=== PATIENT | male | born 1945 | race Caucasian/White ===

== ENCOUNTER 2017-01-04 17:03 | Emergency (ER) | payer OTHER, MEDICARE ==
--- NOTE | 2017-01-04 17:43 | EDM.PDOC ---
ED HPI GENERAL MEDICAL PROBLEM - General Chief Complaint: Laceration Stated Complaint: cut head Time Seen by Provider: 01/04/17 17:43 - Related Data Allergies Allergy/AdvReac Type Severity Reaction Status Date / Time No Known Allergies Allergy Verified 01/04/17 18:13 Home Meds: Home Meds . [Unable to Verify Home Med List] 01/04/17 [History] Past Medical History - Past Health History Medical/Surgical History: Denies Medical/Surgical History Social & Family History - Family History Family Medical History: Noncontributory - Recreational Drug Use Recreational Drug Use: No - Living Situation & Occupation Living situation: Reports: Occupation: Retired ED ROS GENERAL - Review of Systems Review Of Systems: ROS reveals no pertinent complaints other than HPI. ED EXAM, HEAD INJURY - Physical Exam Exam: See Below Exam Limited By: No Limitations General Appearance: Alert, WD/WN, No Apparent Distress Head: Normocephalic, Scalp Lacerations (1.6cm, to depth of subcutaneous tissue) Nexus Criteria: No: Posterior, Midline Cervical Tenderness, Evidence of Intoxication, Altered Level of Consciousness, Focal Neurological Deficit, Painful Distraction Injuries Eyes: Bilateral Eye: Normal Inspection Ears: Normal External Exam, Normal Canal, Hearing Grossly Normal, Normal TMs Nose: Normal Inspection, Normal Mucousa, No Blood Throat/Mouth: Normal Inspection, Normal Lips, Normal Oropharynx, Normal Voice, No Airway Compromise Neck: Normal Inspection Respiratory: No Respiratory Distress, Lungs Clear Cardiovascular: Regular Rate, Rhythm Back Exam: Normal Inspection Extremities: No Evidence of Injury 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 nml As Tested, No Motor/Sensory Deficits, Alert, Normal Mood/Affect, Oriented x 3 ED LACERATION/WOUND & JOSEFINA PROC - Laceration/Wound Repair [place] Lac/wound length in cm: 1.6 Appearance: subcutaneous, linear Distal NVT: neuro & vascular intact Anesthetic type: other (none) Skin prep: chlorhexidine (hibiciens), saline Saline irrigation (cc's): 500 Closed with: kierra # of sutures: 4 Suture type: interrupted Drain placement: No Sterile dressing applied: none Tetanus status addressed: Yes Complications: No Course - Vital Signs Last Recorded V/S: Last Vital Signs Temp 35.9 C 01/04/17 17:30 Pulse 94 01/04/17 17:30 Resp 18 01/04/17 17:30 BP 118/60 01/04/17 17:30 Pulse Ox 94 L 01/04/17 17:30 Departure - Departure Time of Disposition: 17:53 Disposition: Home, Self-Care 01 Clinical Impression: Scalp laceration Qualifiers: Encounter type: initial encounter Qualified Code(s): S01.01XA - Laceration without foreign body of scalp, initial encounter - Discharge Information Instructions: Stitches, Kierra, or Adhesive Wound Closure, [id number] Referrals: PCP,None [Primary Care Provider] - Forms: ED Department Discharge Additional Instructions: May shampoo after 24 hours, gently blot dry. Follow up in clinic with your doctor in 7 to 10 days for suture removal. ED HPI HEAD INJURY - General Chief Complaint: Laceration Stated Complaint: FELL BACK AND CUT HEAD Time Seen by Provider: 01/04/17 17:43 Source of Information: Reports: Patient, RN, RN Notes Reviewed History Limitations: Reports: No Limitations - Related Data Allergies/ADRs: Allergies Allergy/AdvReac Type Severity Reaction Status Date / Time No Known Allergies Allergy Verified 01/04/17 18:13 Home Meds: Home Meds . [Unable to Verify Home Med List] 01/04/17 [History] Departure - Departure Time of Disposition: 17:53 Disposition: Home, Self-Care 01 Condition: good Clinical Impression: Scalp laceration Qualifiers: Encounter type: initial encounter Qualified Code(s): S01.01XA - Laceration without foreign body of scalp, initial encounter Instructions: Stitches, [place], or Adhesive Wound Closure, [id number] Referrals: PCP,None [Primary Care Provider] - Forms: ED Department Discharge Additional Instructions: May shampoo after 24 hours, gently blot dry. Follow up in clinic with your doctor in 7 to 10 days for suture removal.
[2017-01-04 18:13] VITALS: BP 118/60
== END 2017-01-04 18:01 | disposition home or self-care (01) ==
LOC: DL.ED 17:03
DX: S01.01XA Laceration without foreign body of scalp, initial encounter (principal); W26.9XXA Contact with unspecified sharp object(s), initial encounter
CPT/HCPCS: 12001; 99282

== ENCOUNTER 2019-08-12 10:39 | Emergency (ER) | payer MEDICARE, OTHER ==
[2019-08-12 10:51] VITALS: BP 141/69; PULSE 56
[2019-08-12 11:14] LABS: ANION GAP 13.6; CHLORIDE,CL 102 mmol/L (101-111); SODIUM,NA 139 mmol/L (135-145)
--- NOTE | 2019-08-12 11:55 | EDM.PDOC ---
ED HPI GENERAL MEDICAL PROBLEM - General Stated Complaint: HEART PALPITATIONS Time Seen by Provider: 08/12/19 11:08 Source of Information: Reports: Patient History Limitations: Reports: No Limitations - History of Present Illness INITIAL COMMENTS - FREE TEXT/NARRATIVE: This 73 yo male patient was sent to the ED from the [facility] due to heart palpitations yesterday. The patient reports he was not feeling well yesterday afternoon. As he was resting last night (1900), the patient reports feeling heart palpitations. The patient reports the palpations subsided shortly after he noticed them. The patient has not had any return of symptoms and was following up with his primary care facility today. The patient reports several of his family members have been diagnosed with WPW over the past few years. The patient reports he has not had any similar episodes for the past 6 months. The patient reports he is feeling normal at this time and denies any shortness of breath or chest pain. Onset Date: 08/11/19 Onset Time: 19:00 Duration: Resolved Prior to Arrival Location: Reports: Other Quality: Reports: Other Severity: Moderate Improves with: Reports: None Worsens with: Reports: None Context: Reports: Other Associated Symptoms: Reports: No Other Symptoms - Related Data Allergies Allergy/AdvReac Type Severity Reaction Status Date / Time lisinopril AdvReac Cough Verified 08/12/19 10:49 Home Meds: Home Meds Aspirin [Halfprin] 81 mg PO .QOD 06/10/18 [History] Atenolol 50 mg PO .EVENING 06/10/18 [History] Cholecalciferol (Vitamin D3) [Vitamin D3] 1,000 units PO DAILY 06/10/18 [History ] Fluorometholone 1 drop EYEBOTH BID 06/10/18 [History] Folic Acid 400 mcg PO DAILY 06/10/18 [History] Ketorolac [Acular 0.5% Ophth Soln] 1 drop EYELF ASDIRECTED 06/10/18 [History] Losartan [Cozaar] 50 mg PO DAILY 06/10/18 [History] Methylcellulose [Fiber] 1 tab PO DAILY 06/10/18 [History] Moxifloxacin HCl [Moxifloxacin] 1 drop EYERT ASDIRECTED 06/10/18 [History] Simvastatin 20 mg PO BEDTIME 06/10/18 [History] Triamterene/Hydrochlorothiazid [Triamterene-HCTZ 37.5-25 MG] 37.5 mg PO DAILY [History] Vit A and D3 in Cod Liver Oil [Cod Liver Oil Softgel] 1 cap PO DAILY 06/10/18 [ History] Vit A/C/E AC/Znox/Cupric Oxide [Eye Vitamin-Minerals Tablet] 1 tab PO BID [History] amLODIPine Besylate [Amlodipine Besylate] 5 mg PO DAILY 06/10/18 [History] glipiZIDE [Glucotrol] 5 mg PO BID 06/10/18 [History] metFORMIN HCl [Metformin HCl] 1,000 mg PO BID 06/10/18 [History] prednisoLONE acetate [Pred Forte 1% Ophth Susp] 1 drop EYELF ASDIRECTED [History] Past Medical History - Past Health History Medical/Surgical History: Denies Medical/Surgical History HEENT History: Reports: Cataract, Impaired Vision, Macular Degeneration Cardiovascular History: Reports: Arrhythmia, High Cholesterol, Hypertension Respiratory History: Reports: None Gastrointestinal History: Reports: Hemorrhoids Genitourinary History: Reports: Other (See Below) Other Genitourinary History: HYPOGONADISM Musculoskeletal History: Reports: Arthritis Neurological History: Reports: None Psychiatric History: Reports: None Endocrine/Metabolic History: Reports: Diabetes, Type II, Obesity/BMI 30+ Hematologic History: Reports: None Immunologic History: Reports: None Oncologic (Cancer) History: Reports: None Dermatologic History: Reports: None - Infectious Disease History Infectious Disease History: Reports: Chicken Pox, Shingles - Past Surgical History Head Surgeries/Procedures: Reports: None HEENT Surgical History: Reports: Cataract Surgery, Oral Surgery Other HEENT Surgeries/Procedures: TOOTH IMPLANT. CATARACT SURGERY LEFT EYE Cardiovascular Surgical History: Reports: None Respiratory Surgical History: Reports: None GI Surgical History: Reports: Appendectomy, Colonoscopy, Other (See Below) Other GI Surgeries/Procedures: HEMMORHOID PROCEDURE Male Surgical History: Reports: None Endocrine Surgical History: Reports: None Neurological Surgical History: Reports: None Musculoskeletal Surgical History: Reports: None Oncologic Surgical History: Reports: None Dermatological Surgical History: Reports: None Social & Family History - Family History Family Medical History: Noncontributory - Tobacco Use Smoking Status *Q: Former Smoker Used Tobacco, but Quit: Yes Month/Year Tobacco Last Used: 1983 - Caffeine Use Caffeine Use: Reports: Coffee Other Caffeine Use: COFFEE DAILY AVERAGE OF 4-5 CUPS DAILY - Recreational Drug Use Recreational Drug Use: No - Living Situation & Occupation Living situation: Reports: Occupation: Retired ED ROS GENERAL - Review of Systems Review Of Systems: Comprehensive ROS is negative, except as noted in HPI. ED EXAM, GENERAL - Physical Exam Exam: See Below Exam Limited By: No Limitations General Appearance: Alert, WD/WN, No Apparent Distress Eye Exam: Bilateral Eye: EOMI, Normal Inspection, PERRL Ears: Normal External Exam, Normal Canal, Hearing Grossly Normal, Normal TMs Nose: Normal Inspection, Normal Mucosa, No Blood Throat/Mouth: Normal Inspection, Normal Lips, Normal Teeth, Normal Gums, Normal Oropharynx, Normal Voice, No Airway Compromise Head: Atraumatic, Normocephalic Neck: Normal Inspection, Supple, Non-Tender, Full Range of Motion Respiratory/Chest: No Respiratory Distress, Lungs Clear, Normal Breath Sounds, No Accessory Muscle Use, Chest Non-Tender Cardiovascular: Normal Peripheral Pulses, Regular Rate, Rhythm, No Edema, No Gallop, No JVD, No Murmur, No Rub GI/Abdominal: Normal Bowel Sounds, Soft, Non-Tender, No Organomegaly, No Distention, No Abnormal Bruit, No Mass (Male) Exam: Deferred Rectal (Males) Exam: Deferred Back Exam: Normal Inspection, Full Range of Motion, NT Extremities: Normal Inspection, Normal Range of Motion, Non-Tender, Normal Capillary Refill, No Pedal Edema Neurological: Alert, Oriented, CN II-XII Intact, Normal Cognition, Normal Gait, Normal Reflexes, No Motor/Sensory Deficits Psychiatric: Normal Affect, Normal Mood Skin Exam: Warm, Dry, Intact, Normal Color, No Rash Lymphatic: No Adenopathy Course - Vital Signs Last Recorded V/S: Last Vital Signs Temp 36.4 C 08/12/19 10:49 Pulse 56 L 08/12/19 10:49 Resp 12 08/12/19 10:49 BP 141/69 H 08/12/19 10:49 Pulse Ox 97 08/12/19 10:49 - Orders/Labs/Meds Orders: Active Orders 24 hr Category Date Time Status EKG Documentation Completion [RC] URGENT Care 08/12/19 10:48 Ordered Chest 1V Frontal [CR] Urgent Exams 08/12/19 10:48 Ordered Labs: Laboratory Tests 08/12/19 08/12/19 08/12/19 Range/Units 10:48 10:48 10:48 WBC 8.3 (5.0-10.0) 10^3/uL RBC 4.81 (4.6-6.2) 10^6/uL Hgb 14.1 (14.0-18.0) g/dL Hct 41.2 (40.0-54.0) % MCV 85.7 (80-100) fL MCH 29.3 (27.0-34.0) pg MCHC 34.2 (33.0-35.0) g/dL Plt Count 202 (150-450) 10^3/uL Neut % (Auto) 66.8 (42.2-75.2) % Lymph % (Auto) 22.9 (20.5-50.1) % Hall % (Auto) 7.7 (2-8) % Eos % (Auto) 2.1 (1.0-3.0) % Baso % (Auto) 0.5 (0.0-1.0) % PT 10.3 (9.0-12.0) SEC INR 1.0 (0.9-1.2) Sodium 139 (135-145) mmol/L Potassium 3.6 (3.6-5.0) mmol/L Chloride 102 (101-111) mmol/L Carbon Dioxide 27.0 (21.0-31.0) mmol/L Anion Gap 13.6 BUN 32 H (7-18) mg/dL Creatinine 1.3 (0.6-1.3) mg/dL Est Cr Clr Drug Dosing 53.90 mL/min Estimated GFR (MDRD) 54 BUN/Creatinine Ratio 24.61 Glucose 181 H (74-105) mg/dL Calcium 9.6 (8.4-10.2) mg/dl Total Bilirubin 1.2 H (0.2-1.0) mg/dL AST 24 (10-42) IU/L ALT 29 (10-60) IU/L Alkaline Phosphatase 95 (42-121) IU/L Troponin I < 0.02 (0.00-0.02) ng/ml Total Protein 7.3 (6.7-8.2) g/dl Albumin 4.7 (3.2-5.5) g/dl Globulin 2.6 Albumin/Globulin Ratio 1.81 Departure - Departure Time of Disposition: 11:53 Disposition: Home, Self-Care 01 Condition: Fair Clinical Impression: Intermittent palpitations Instructions: Palpitations, [id number] Care Plan Goals: The patient and Dr. Colindres were advised of the examination, lab, EKG and x- ray results during the visit. Dr. Colindres has agreed to follow-up with the patient for continued evaluation and further management. If the patient has any additional symptoms or concerns, the patient should either return to the emergency department or visit his primary care facility. Sepsis Event Note - Evaluation Sepsis Screening Result: No Definite Risk - Focused Exam Vital Signs: Vital Signs Temp Pulse Resp BP Pulse Ox 08/12/19 10:49 36.4 C 56 L 12 141/69 H 97 Date Exam was Performed: 08/12/19 Time Exam was Performed: 11:48 - My Orders Last 24 Hours: My Active Orders 08/12/19 10:48 EKG Documentation Completion [RC] URGENT Chest 1V Frontal [CR] Urgent - Assessment/Plan Last 24 Hours: My Active Orders 08/12/19 10:48 EKG Documentation Completion [RC] URGENT Chest 1V Frontal [CR] Urgent
--- NOTE | 2019-08-12 12:57 | CR ---
EXAMINATION: Chest 1V Frontal SEX: Male AGE: 73 years CLINICAL HISTORY: 73-year-old male emergency department with PALPITATIONS. INTERPRETATION: 1. Normal cardiac silhouette. External child monitor leads. 2. No pulmonary vascular congestion, cephalization of flow, alveolar edema or dependent pleural effusion. 3. No lung mass or hilar lymphadenopathy. 4. No focal lobar pneumonia, atelectasis or collapse. 5. No pneumothorax or pneumomediastinum. Midline tracheal airway unremarkable. CONCLUSION: No acute cardiopulmonary abnormality.
== END 2019-08-12 12:10 | disposition home or self-care (01) ==
LOC: DL.ED 10:39
DX: R00.2 Palpitations (principal); I10 Essential (primary) hypertension; E11.9 Type 2 diabetes mellitus without complications; E78.00 Pure hypercholesterolemia, unspecified; M19.90 Unspecified osteoarthritis, unspecified site; E66.9 Obesity, unspecified; Z68.38 Body mass index [BMI] 38.0-38.9, adult; Z87.891 Personal history of nicotine dependence; Z88.8 Allergy status to other drugs, medicaments and biological substances; Z79.82 Long term (current) use of aspirin; Z79.899 Other long term (current) drug therapy; Z79.84 Long term (current) use of oral hypoglycemic drugs
CPT/HCPCS: 36415; 71045; 80053; 84484; 85025; 85610; 93005; 99285-25

== ENCOUNTER 2019-08-14 08:34 | Emergency (ER) | payer MEDICARE, OTHER ==
--- NOTE | 2019-08-14 08:37 | EDM.PDOC ---
ED HPI GENERAL MEDICAL PROBLEM - General Stated Complaint: HEART RATE UP Time Seen by Provider: 08/14/19 08:45 Source of Information: Reports: Patient History Limitations: Reports: No Limitations - History of Present Illness INITIAL COMMENTS - FREE TEXT/NARRATIVE: This 73 yo male patient reports to the ED with heart palpitations. The patient reports he woke up at about 0100 this morning due to right arm pain. The patient reports he can still feel that his heart is beating fast, but denies any current pain or shortness of breath. The patient was seen in the ED 2 days ago for a similar episode. During that visit, the patient's symptoms had subsided and he had not had any palpitations since the day prior to the visit. Today, the patient waited at home until he could get a hold of his primary care provider (Dr. Colindres). The patient report she took an Atenolol at about 0800 while at home under the direction of Dr. Colindres. The patient denies any chest pain, arm pain or shortness of breath while in the ED. Onset: Today Onset Date: 08/14/19 Onset Time: 01:00 Duration: Constant Location: Reports: Chest (Palpitations) Quality: Reports: Other Severity: Mild Improves with: Reports: None Worsens with: Reports: None Context: Reports: Other Associated Symptoms: Reports: Other (Heart palpitations) Treatments PICK REMOVER: Reports: Other Medication(s) (Atenolol (100 mg) at 0800) - Related Data Allergies Allergy/AdvReac Type Severity Reaction Status Date / Time lisinopril AdvReac Cough Verified 08/14/19 09:05 Home Meds: Home Meds Aspirin [Halfprin] 81 mg PO .QOD 06/10/18 [History] Atenolol 50 mg PO .EVENING 06/10/18 [History] Cholecalciferol (Vitamin D3) [Vitamin D3] 1,000 units PO DAILY 06/10/18 [History ] Fluorometholone 1 drop EYEBOTH BID 06/10/18 [History] Folic Acid 400 mcg PO DAILY 06/10/18 [History] Ketorolac [Acular 0.5% Ophth Soln] 1 drop EYELF ASDIRECTED 06/10/18 [History] Losartan [Cozaar] 50 mg PO DAILY 06/10/18 [History] Methylcellulose [Fiber] 1 tab PO DAILY 06/10/18 [History] Moxifloxacin HCl [Moxifloxacin] 1 drop EYERT ASDIRECTED 06/10/18 [History] Simvastatin 20 mg PO BEDTIME 06/10/18 [History] Triamterene/Hydrochlorothiazid [Triamterene-HCTZ 37.5-25 MG] 37.5 mg PO DAILY [History] Vit A and D3 in Cod Liver Oil [Cod Liver Oil Softgel] 1 cap PO DAILY 06/10/18 [ History] Vit A/C/E AC/Znox/Cupric Oxide [Eye Vitamin-Minerals Tablet] 1 tab PO BID [History] amLODIPine Besylate [Amlodipine Besylate] 5 mg PO DAILY 06/10/18 [History] glipiZIDE [Glucotrol] 5 mg PO BID 06/10/18 [History] metFORMIN HCl [Metformin HCl] 1,000 mg PO BID 06/10/18 [History] prednisoLONE acetate [Pred Forte 1% Ophth Susp] 1 drop EYELF ASDIRECTED [History] Past Medical History - Past Health History Medical/Surgical History: Denies Medical/Surgical History HEENT History: Reports: Cataract, Impaired Vision, Macular Degeneration Cardiovascular History: Reports: Arrhythmia, High Cholesterol, Hypertension Respiratory History: Reports: None Gastrointestinal History: Reports: Hemorrhoids Genitourinary History: Reports: Other (See Below) Other Genitourinary History: HYPOGONADISM Musculoskeletal History: Reports: Arthritis Neurological History: Reports: None Psychiatric History: Reports: None Endocrine/Metabolic History: Reports: Diabetes, Type II, Obesity/BMI 30+ Hematologic History: Reports: None Immunologic History: Reports: None Oncologic (Cancer) History: Reports: None Dermatologic History: Reports: None - Infectious Disease History Infectious Disease History: Reports: Chicken Pox, Shingles - Past Surgical History Head Surgeries/Procedures: Reports: None HEENT Surgical History: Reports: Cataract Surgery, Oral Surgery Other HEENT Surgeries/Procedures: TOOTH IMPLANT. CATARACT SURGERY LEFT EYE Cardiovascular Surgical History: Reports: None Respiratory Surgical History: Reports: None GI Surgical History: Reports: Appendectomy, Colonoscopy, Other (See Below) Other GI Surgeries/Procedures: HEMMORHOID PROCEDURE Male Surgical History: Reports: None Endocrine Surgical History: Reports: None Neurological Surgical History: Reports: None Musculoskeletal Surgical History: Reports: None Oncologic Surgical History: Reports: None Dermatological Surgical History: Reports: None Social & Family History - Family History Family Medical History: Noncontributory - Caffeine Use Caffeine Use: Reports: Coffee Other Caffeine Use: COFFEE DAILY AVERAGE OF 4-5 CUPS DAILY - Living Situation & Occupation Living situation: Reports: Occupation: Retired ED ROS GENERAL - Review of Systems Review Of Systems: Comprehensive ROS is negative, except as noted in HPI. ED EXAM, GENERAL - Physical Exam Exam: See Below Exam Limited By: No Limitations General Appearance: Alert, WD/WN, No Apparent Distress Eye Exam: Bilateral Eye: EOMI, Normal Inspection, PERRL Ears: Normal External Exam, Normal Canal, Hearing Grossly Normal, Normal TMs Nose: Normal Inspection, Normal Mucosa, No Blood Throat/Mouth: Normal Inspection, Normal Lips, Normal Teeth, Normal Gums, Normal Oropharynx, Normal Voice, No Airway Compromise Head: Atraumatic, Normocephalic Neck: Normal Inspection, Supple, Non-Tender, Full Range of Motion Respiratory/Chest: No Respiratory Distress, Lungs Clear, Normal Breath Sounds, No Accessory Muscle Use, Chest Non-Tender Cardiovascular: No Edema, Tachycardia GI/Abdominal: Normal Bowel Sounds, Soft, Non-Tender, No Organomegaly, No Distention, No Abnormal Bruit, No Mass Rectal (Males) Exam: Deferred Back Exam: Normal Inspection, Full Range of Motion, NT Extremities: Normal Inspection, Normal Range of Motion, Non-Tender, Normal Capillary Refill, No Pedal Edema Neurological: Alert, Oriented, CN II-XII Intact, Normal Cognition, Normal Gait, Normal Reflexes, No Motor/Sensory Deficits Psychiatric: Normal Affect, Normal Mood Skin Exam: Warm, Dry, Intact, Normal Color, No Rash Lymphatic: No Adenopathy Course - Vital Signs Last Recorded V/S: Last Vital Signs Temp 36.4 C 08/14/19 08:45 Pulse 130 H 08/14/19 08:45 Resp 22 H 08/14/19 08:45 BP 122/72 08/14/19 08:45 Pulse Ox 97 08/14/19 08:45 - Orders/Labs/Meds Orders: Active Orders 24 hr Category Date Time Status EKG Documentation Completion [RC] ROUTINE Care 08/14/19 12:30 Ordered EKG Documentation Completion [RC] URGENT Care 08/14/19 08:36 Active Heart Healthy Diet [DIET] Diet 08/14/19 Lunch Ordered Labs: Laboratory Tests 08/14/19 08/14/19 08/14/19 Range/Units 08:43 08:43 12:40 WBC 9.2 (5.0-10.0) 10^3/uL RBC 4.90 (4.6-6.2) 10^6/uL Hgb 14.4 (14.0-18.0) g/dL Hct 41.2 (40.0-54.0) % MCV 84.1 (80-100) fL MCH 29.4 (27.0-34.0) pg MCHC 35.0 (33.0-35.0) g/dL Plt Count 196 (150-450) 10^3/uL Neut % (Auto) 68.7 (42.2-75.2) % Lymph % (Auto) 20.3 L (20.5-50.1) % Stewart % (Auto) 8.0 (2-8) % Eos % (Auto) 2.5 (1.0-3.0) % Baso % (Auto) 0.5 (0.0-1.0) % Sodium 138 (135-145) mmol/L Potassium 3.3 L (3.6-5.0) mmol/L Chloride 103 (101-111) mmol/L Carbon Dioxide 25.0 (21.0-31.0) mmol/L Anion Gap 13.3 BUN 26 H (7-18) mg/dL Creatinine 1.1 (0.6-1.3) mg/dL Est Cr Clr Drug Dosing 63.70 mL/min Estimated GFR (MDRD) > 60 BUN/Creatinine Ratio 23.63 Glucose 172 H (74-105) mg/dL Calcium 9.3 (8.4-10.2) mg/dl Total Bilirubin 0.7 (0.2-1.0) mg/dL AST 22 (10-42) IU/L ALT 29 (10-60) IU/L Alkaline Phosphatase 99 (42-121) IU/L Troponin I < 0.02 < 0.02 (0.00-0.02) ng/ml Total Protein 7.0 (6.7-8.2) g/dl Albumin 4.5 (3.2-5.5) g/dl Globulin 2.5 Albumin/Globulin Ratio 1.80 Meds: Medications Discontinued Medications Generic Name Dose Route Start Last Admin Trade Name Artemio PRN Reason Stop Dose Admin Aspirin 324 mg 08/14/19 08:56 08/14/19 09:00 Aspirin PO 08/14/19 08:57 324 mg ONETIME ONE Administration - Re-Assessments/Exams Free Text/Narrative Re-Assessment/Exam: 08/14/19 09:08 The patient initially came to the ED in a Sinus Tachycardia with a report of taking Atenolol (100 mg) 30 minutes prior to arrival. Within 30 minutes of presentation, the patient started to have irregularities in his cardiac rhythm. At 0911, the patient converted into a sinus bradycardia with no further irregularities. 08/14/19 09:29 The patient was advised of the examination, lab, x-ray and EKG results. Since the patient converted, the patient will be placed as an extended ED patient for a repeat EKG and Troponin at 1230. Departure - Departure Time of Disposition: 13:45 Disposition: Home, Self-Care 01 Reason for Transfer *Q: Other Condition: Fair Clinical Impression: Intermittent palpitations Instructions: Palpitations, [id number] Forms: ED Department Discharge Care Plan Goals: The patient was advised of the examination, lab, EKG, x-ray, repeat EKG and repeat lab results during the visit. The patient was encouraged to follow-up with his primary care facility for continued evaluation and further management. The patient was encouraged to return to the emergency department if his symptoms start or get worse. Sepsis Event Note - Focused Exam Vital Signs: Vital Signs Temp Pulse Resp BP Pulse Ox 08/14/19 08:45 36.4 C 130 H 22 H 122/72 97 Date Exam was Performed: 08/14/19 Time Exam was Performed: 13:45 - My Orders Last 24 Hours: My Active Orders 08/14/19 08:36 EKG Documentation Completion [RC] URGENT 08/14/19 12:30 EKG Documentation Completion [RC] ROUTINE 08/14/19 Lunch Heart Healthy Diet [DIET] - Assessment/Plan Last 24 Hours: My Active Orders 08/14/19 08:36 EKG Documentation Completion [RC] URGENT 08/14/19 12:30 EKG Documentation Completion [RC] ROUTINE 08/14/19 Lunch Heart Healthy Diet [DIET]
[2019-08-14] MEDS ORDERED: Aspirin 81 MG Tab.Chew PO ONE (08:56)
[2019-08-14 08:58] VITALS: BP 122/72; PULSE 130
--- NOTE | 2019-08-14 09:04 | CR ---
EXAMINATION: Chest 1V Frontal SEX: Male AGE: 73 years CLINICAL HISTORY: 73-year-old male with tachycardia (recent evaluation for "palpitations"). INTERPRETATION: (External electronic device monitor leads) 1. Normal cardiac silhouette. No increase in size or change in configuration since 12 August 2019 or previous 13 May 2013 films. Left-sided aortic arch. 2. No pulmonary vascular congestion, cephalization of flow, alveolar edema or dependent new pleural fluid accumulation. 3. No lung mass or hilar lymphadenopathy. 4. No new focal lobar infiltrate, atelectasis or collapse. 5. No pneumothorax, pneumomediastinum or free subdiaphragmatic air. CONCLUSION: No acute new cardiopulmonary abnormality.
[2019-08-14 09:16] LABS: ANION GAP 13.3; CHLORIDE,CL 103 mmol/L (101-111); SODIUM,NA 138 mmol/L (135-145)
== END 2019-08-14 14:59 | disposition home or self-care (01) ==
LOC: DL.ED 08:34
DX: R00.2 Palpitations (principal); I10 Essential (primary) hypertension; E11.9 Type 2 diabetes mellitus without complications; E78.00 Pure hypercholesterolemia, unspecified; E66.9 Obesity, unspecified; Z68.33 Body mass index [BMI] 33.0-33.9, adult; Z79.82 Long term (current) use of aspirin; Z79.84 Long term (current) use of oral hypoglycemic drugs; Z79.899 Other long term (current) drug therapy
CPT/HCPCS: 36415; 71045; 80053; 84484; 85025; 93005; 99285; A9270

== ENCOUNTER 2019-11-17 06:25 | Day surgery (SDC) | payer OTHER, MEDICARE ==
[~2019-11-17 06:25] MED LIST: Midazolam 1 MG/ML 2 ML SDV ONE; Sodium Chloride 0.9% 10 ML Syringe FLUSH PRN; fentaNYL 100 MCG/2 ML SDV ONE
[2019-11-17] MEDS ORDERED: Midazolam 1 MG/ML 2 ML SDV IV ONE (06:26)
[2019-11-17] MEDS ORDERED: fentaNYL 100 MCG/2 ML SDV IV ONE (06:26)
[2019-11-17] MEDS: Dextrose 5%-0.45% NaCl 1,000 ML IV SCH (06:55)
[2019-11-17] MEDS: fentaNYL 100 MCG/2 ML SDV IV ONE ×2 (07:13→07:14)
[2019-11-17] MEDS: Midazolam 1 MG/ML 2 ML SDV IV ONE ×4 (07:15→07:26)
--- NOTE | 2019-11-17 08:31 | OR ---
DATE: 11/17/2019 PROCEDURE: Total colonoscopy and multiple cold snare polypectomies. INSTRUMENT USED: PCF-H190DL Olympus video colonoscope. PREMEDICATIONS: Fentanyl 100 mcg intravenous, Versed 3 mg intravenous, nasal O2 cannula. The procedure was done under pulse oximetry, BP recording, and glaucoma specialist. INDICATION: The patient with intermittent diarrhea, unexplained and not responsive to medical measures. Colonoscopic examination is done for detection of any polypoid lesions and removal, endoscopic hemostasis therapy if needed. DESCRIPTION OF PROCEDURE: Initial rectal exam was unremarkable. Rigid anoscopy showed small internal hemorrhoids without bleeding from them. The colonoscope was passed with ease. Scattered diverticula were noted in the distal left colon along with deformity. In the proximal sigmoid colon, diminutive 3 mm sized benign-appearing polyps, 2 in number noted. Photographs were taken. Cold snare polypectomies were done. The tissues were retrieved and sent for histopathology. The scope was passed with ease up to the ileocecal area. Photographs were taken of the normal-appearing cecum identified by landmarks of appendiceal orifice and double-bulged ileocecal folds. No bleeding was noted from any of the visualized areas at the commencement of the examination. The bowel preparation was found to be adequate, [place] scale 2 in all the regions, total score 6. No stricture. No vascular ectasia. No large isolated ulcerations seen. No evidence of diffuse inflammatory bowel disease in the form of friability, contact bleeding, or ulcerations. Probing the proximal sides of folds and flexures using adequate distention and clearing up the stool material, withdrawal of the scope was made, cecum to rectum time over 6 minutes. No bleeding was noted from any of the visualized areas at the completion of examination. IMPRESSION: 1. Internal hemorrhoids. 2. Diminutive sigmoid polyps. 3. Diverticulosis. The patient tolerated the procedure well. [facility] /[id number]
--- NOTE | 2019-11-17 10:00 | LETTER ---
11/17/2019 [place] Manuel, [address] [place] [address] RE: LUCIO DUNAWAY : 1945 Dear Ms. Manuel: Mr. Lucio Dunaway had colonoscopic examination done this morning and he tolerated the procedure well. I herewith send a copy of the endoscopy note and photographs for your review. Thank you. Sincerely, [facility] /[id number]
[2019-11-17 10:37] VITALS: BP 127/64; PULSE 67
== END 2019-11-17 09:34 | disposition home or self-care (01) ==
LOC: DL.ENDO 06:25
PROVIDERS: ATTEND Internal Medicine Gastroenterology
DX: D12.5 Benign neoplasm of sigmoid colon (principal); K57.30 Diverticulosis of large intestine without perforation or abscess without bleeding; K64.8 Other hemorrhoids; I10 Essential (primary) hypertension; I48.0 Paroxysmal atrial fibrillation; E78.5 Hyperlipidemia, unspecified; E66.09 Other obesity due to excess calories; Z88.8 Allergy status to other drugs, medicaments and biological substances; Z90.49 Acquired absence of other specified parts of digestive tract; Z86.010 Personal history of colon polyps; Z68.31 Body mass index [BMI] 31.0-31.9, adult
CPT/HCPCS: 45385; J2250; J3010; J7042

== ENCOUNTER 2020-10-07 15:26 | Emergency (ER) | payer MEDICARE, OTHER ==
[2020-10-07] MEDS ORDERED: Sodium Chloride 0.9% 10 ML Syringe FLUSH PRN (15:38)
[2020-10-07] MEDS ORDERED: Metoprolol Tartrate 5 MG/5 ML SDV IVPUSH ONE (15:38)
[2020-10-07 15:49] VITALS: BP 174/83
[2020-10-07 16:08] LABS: ANION GAP 13.7 mEq/L (7-13); CHLORIDE,CL 102 mmol/L (98-107); SODIUM,NA 139 mmol/L (136-145)
[2020-10-07 16:40] VITALS: PULSE 132
--- NOTE | 2020-10-07 16:43 | EDM.PDOC ---
Scribed by Tiana Trejo 10/07/20 1559 for Emery Dixon MD ED HPI GENERAL MEDICAL PROBLEM - General Chief Complaint: Cardiovascular Problem Stated Complaint: AFIB Time Seen by Provider: 10/07/20 15:35 Source of Information: Reports: Patient, RN, RN Notes Reviewed History Limitations: Reports: No Limitations - History of Present Illness INITIAL COMMENTS - FREE TEXT/NARRATIVE: Patient presents to ED by POV stating that he is in A-fib with rapid rate. He has a history of paroxysmal atrial fibrillation, rate is easily controlled. No recent illness or medication changes but did get a first COVID vaccine yesterday. Admits to fatigue and mild shortness of breath. Denies chest pain. Onset: Unknown/Unsure Duration: Recurring Location: Reports: Chest Quality: Reports: Ache Severity: Severe Improves with: Reports: None Worsens with: Reports: None Associated Symptoms: Reports: No Other Symptoms - Related Data Allergies Allergy/AdvReac Type Severity Reaction Status Date / Time lisinopril AdvReac Cough Verified 11/17/19 06:39 Home Meds: Home Meds Cholecalciferol (Vitamin D3) [Vitamin D3] 1,000 units PO DAILY 06/10/18 [History] Folic Acid 400 mcg PO DAILY 06/10/18 [History] Losartan [Cozaar] 100 mg PO DAILY 06/10/18 [History] Simvastatin 10 mg PO BEDTIME 06/10/18 [History] Triamterene/Hydrochlorothiazid [Triamterene-HCTZ 37.5-25 MG] 37.5 mg PO DAILY 06/10/18 [History] Vit A/C/E AC/Znox/Cupric Oxide [Eye Vitamin-Minerals Tablet] 1 tab PO BID 06/10/18 [History] amLODIPine Besylate [Amlodipine Besylate] 5 mg PO DAILY 06/10/18 [History] glipiZIDE [Glucotrol] 15 mg PO BID 06/10/18 [History] Rivaroxaban [Xarelto] 20 mg PO DAILY 09/07/19 [History] metFORMIN HCl [Metformin HCl] 1,000 mg PO BID 09/07/19 [History] Metoprolol Succinate [Toprol XL 100mg] 150 mg PO DAILY 09/08/19 [History] Aflibercept [Eylea] 2 mg INJECT .Q8WEEK 11/16/19 [History] Cod Liver Oil 1 cap PO DAILY 11/16/19 [History] Past Medical History - Past Health History Medical/Surgical History: Denies Medical/Surgical History HEENT History: Reports: Cataract, Impaired Vision, Macular Degeneration Cardiovascular History: Reports: Afib, Arrhythmia, High Cholesterol, Hypertension Respiratory History: Reports: Sleep Apnea Gastrointestinal History: Reports: Colon Polyp, Hemorrhoids Genitourinary History: Reports: Other (See Below) Other Genitourinary History: HYPOGONADISM Musculoskeletal History: Reports: Arthritis, Other (See Below) Other Musculoskeletal History: SHOT IN LEFT HIP IN SERVICE. Neurological History: Reports: None Psychiatric History: Reports: None Endocrine/Metabolic History: Reports: Diabetes, Type II, Obesity/BMI 30+ Hematologic History: Reports: Anticoagulation Therapy Immunologic History: Reports: None Oncologic (Cancer) History: Reports: None Dermatologic History: Reports: None - Infectious Disease History Infectious Disease History: Reports: Chicken Pox, Shingles - Past Surgical History Head Surgeries/Procedures: Reports: None HEENT Surgical History: Reports: Cataract Surgery, Oral Surgery Other HEENT Surgeries/Procedures: TOOTH IMPLANT. CATARACT SURGERY LEFT EYE Cardiovascular Surgical History: Reports: None Respiratory Surgical History: Reports: None GI Surgical History: Reports: Appendectomy, Colonoscopy, Other (See Below) Other GI Surgeries/Procedures: HEMMORHOID PROCEDURE Male Surgical History: Reports: None Endocrine Surgical History: Reports: None Neurological Surgical History: Reports: None Musculoskeletal Surgical History: Reports: None Oncologic Surgical History: Reports: None Dermatological Surgical History: Reports: None Social & Family History - Family History Family Medical History: No Pertinent Family History - Caffeine Use Caffeine Use: Reports: None - Living Situation & Occupation Living situation: Reports: Occupation: Retired ED ROS GENERAL - Review of Systems Review Of Systems: Comprehensive ROS is negative, except as noted in HPI. ED EXAM, GENERAL - Physical Exam Exam: See Below Exam Limited By: No Limitations General Appearance: Alert, WD/WN, No Apparent Distress Nose: Normal Inspection Throat/Mouth: Normal Inspection, Normal Voice, No Airway Compromise Head: Atraumatic, Normocephalic Neck: Normal Inspection Respiratory/Chest: No Respiratory Distress, Lungs Clear, Normal Breath Sounds, No Accessory Muscle Use, Chest Non-Tender Cardiovascular: Tachycardia, Irregularly Irregular GI/Abdominal: Normal Bowel Sounds, Soft, Non-Tender, No Distention Back Exam: Normal Inspection Extremities: Normal Inspection, Normal Range of Motion, Non-Tender, Normal Capillary Refill, No Pedal Edema Neurological: Alert, Oriented, CN II-XII Intact, Normal Cognition, Normal Gait, No Motor/Sensory Deficits Psychiatric: Normal Affect, Normal Mood Skin Exam: Warm, Dry, Intact, Normal Color, No Rash #1 Interpretation EKG Date: 10/07/20 Time: 15:40 Rhythm: Other (sinus rhythm) Rate (Beats/Min): 80 [place]: Normal P-Wave: Present QRS: Other (LAFB) ST-T: Normal QT: Prolonged (borderlien prolonged QT interval) Course - Vital Signs Last Recorded V/S: Last Vital Signs Temp 96 F L 10/07/20 15:30 Pulse 135 H 10/07/20 15:47 Resp 19 10/07/20 15:30 BP 174/83 H 10/07/20 15:47 Pulse Ox 96 10/07/20 15:30 - Orders/Labs/Meds Orders: Active Orders 24 hr Category Date Time Status EKG 12 Lead [EKG Documentation Completion] [RC] STAT Care 10/07/20 15:38 Active Peripheral IV Care [RC] . DIRECTED Care 10/07/20 15:38 Active Sodium Chloride 0.9% [Saline Flush] Med 10/07/20 15:38 Active 10 ml FLUSH ASDIRECTED PRN Peripheral IV Insertion Adult [OM.PC] Stat Oth 10/07/20 15:38 Ordered Medication Orders Sodium Chloride (Saline Flush) 10 ml FLUSH ASDIRECTED PRN PRN Reason: Keep Vein Open Last Admin: 10/07/20 15:47 Dose: 10 ml Documented by: KIARRA Labs: Laboratory Tests 10/07/20 10/07/20 Range/Units 15:39 15:39 WBC 7.7 (5.0-10.0) 10^3/uL RBC 5.22 (4.6-6.2) 10^6/uL Hgb 15.2 (14.0-18.0) g/dL Hct 43.3 (40.0-54.0) % MCV 83.0 (80-100) fL MCH 29.1 (27.0-34.0) pg MCHC 35.1 H (33.0-35.0) g/dL Plt Count 146 L (150-450) 10^3/uL Neut % (Auto) 65.2 (42.2-75.2) % Lymph % (Auto) 21.6 (20.5-50.1) % [place] % (Auto) 10.1 H (2-8) % Eos % (Auto) 2.6 (1.0-3.0) % Baso % (Auto) 0.5 (0.0-1.0) % Sodium 139 (136-145) mmol/L Potassium 3.7 (3.5-5.1) mmol/L Chloride 102 (98-107) mmol/L Carbon Dioxide 27 (21-32) mmol/L Anion Gap 13.7 H (7-13) mEq/L BUN 22 H (7-18) mg/dL Creatinine 1.06 (0.70-1.30) mg/dL Est Cr Clr Drug Dosing TNP Estimated GFR (MDRD) > 60 BUN/Creatinine Ratio 20.8 (No establ ref range) Glucose 259 H (74-99) mg/dL Calcium 8.9 (8.5-10.1) mg/dL Magnesium 1.5 L (1.8-2.4) mg/dL Total Bilirubin 0.6 (0.2-1.0) mg/dL AST 9 L (15-37) U/L ALT 35 (16-63) U/L Alkaline Phosphatase 179 H (46-116) U/L Troponin I < 0.017 (0.000-0.056) ng/mL B-Natriuretic Peptide 63 (0-100) pg/ml Total Protein 7.1 (6.4-8.2) g/dL Albumin 4.1 (3.4-5.0) g/dL Globulin 3.0 Albumin/Globulin Ratio 1.4 Meds: Medications Generic Name Dose Route Start Last Admin Trade Name Freq PRN Reason Stop Dose Admin Sodium Chloride 10 ml 10/07/20 15:38 10/07/20 15:47 Saline Flush FLUSH 10 ml ASDIRECTED PRN Administration Keep Vein Open Discontinued Medications Generic Name Dose Route Start Last Admin Trade Name Freq PRN Reason Stop Dose Admin Metoprolol Tartrate 5 mg 10/07/20 15:38 10/07/20 15:47 Lopressor IVPUSH 10/07/20 15:39 5 mg ONETIME ONE Administration - Re-Assessments/Exams Free Text/Narrative Re-Assessment/Exam: 10/07/20 16:40 Pt converted to SR with Metoprolol 2mg IVP (5mg ordered, but pt converted before the full dose was pushed). He remained in SR with rate in 60s to 70s throughout the remainder of the ER stay. Departure - Departure Time of Disposition: 16:41 Disposition: Home, Self-Care 01 Condition: Good Clinical Impression: Paroxysmal atrial fibrillation with rapid ventricular response Instructions: Atrial Fibrillation, [id number] Forms: ED Department Discharge Additional Instructions: Take your Metoprolol when you return home. Follow up in clinic if any further problems. Return to ER if you heart rate goes over 130, or if you have chest pain, shortness of breath, or feel faint. Sepsis Event Note (ED) - Focused Exam Vital Signs: Vital Signs Temp Pulse Pulse Resp BP BP Pulse Ox 10/07/20 15:47 135 H 174/83 H 10/07/20 15:30 96 F L 132 H 19 174/83 H 96 - My Orders Last 24 Hours: My Active Orders 10/07/20 15:38 EKG 12 Lead [EKG Documentation Completion] [RC] STAT Peripheral IV Care [RC] . DIRECTED Sodium Chloride 0.9% [Saline Flush] 10 ml FLUSH ASDIRECTED PRN Peripheral IV Insertion Adult [OM.PC] Stat - Assessment/Plan Last 24 Hours: My Active Orders 10/07/20 15:38 EKG 12 Lead [EKG Documentation Completion] [RC] STAT Peripheral IV Care [RC] . DIRECTED Sodium Chloride 0.9% [Saline Flush] 10 ml FLUSH ASDIRECTED PRN Peripheral IV Insertion Adult [OM.PC] Stat I have read and agree with the documentation that has been completed regarding this visit. By signing this record, I attest that the documentation was completed in my physical presence and is an accurate record of the encounter.
== END 2020-10-07 16:48 | disposition home or self-care (01) ==
LOC: DL.ED 15:26
DX: I48.0 Paroxysmal atrial fibrillation (principal); E78.00 Pure hypercholesterolemia, unspecified; I10 Essential (primary) hypertension; E11.9 Type 2 diabetes mellitus without complications; E66.9 Obesity, unspecified; Z88.8 Allergy status to other drugs, medicaments and biological substances; Z79.84 Long term (current) use of oral hypoglycemic drugs; Z79.899 Other long term (current) drug therapy; Z79.01 Long term (current) use of anticoagulants
CPT/HCPCS: 36415; 80053; 83735; 83880; 84484; 85025; 93005; 96374; 99285; J3490; 93010; 99284

== ENCOUNTER 2020-12-11 14:50 | Emergency (ER) | payer OTHER, MEDICARE ==
[2020-12-11] MEDS ORDERED: Sodium Chloride 0.9% 10 ML Syringe FLUSH PRN (15:18)
[2020-12-11] MEDS ORDERED: Metoprolol Tartrate 5 MG/5 ML SDV IVPUSH ONE ×2 (15:19→16:05)
[2020-12-11] MEDS ORDERED: Sodium Chloride 0.9% 500 ML IV SCH (15:30)
[2020-12-11 15:54] LABS: PTT,PARTIAL THROMBOPLSTIN TIME 23.6 SEC (22.0-34.0)
[2020-12-11 15:57] LABS: ANION GAP 17.3 mEq/L (7-13); CHLORIDE,CL 103 mmol/L (98-107); SODIUM,NA 142 mmol/L (136-145)
[2020-12-11] MEDS ORDERED: Potassium Chloride 10 MEQ Tab.ER PO ONE (16:03)
[2020-12-11] MEDS ORDERED: Magnesium Sulfate/Water 2 GM/50 ML BAG IV ONE (16:04)
[2020-12-11] MEDS ORDERED: Metoprolol Tartrate 25 MG Tab PO ONE (17:38)
--- NOTE | 2020-12-11 18:09 | EDM.PDOC ---
Scribed by Tiana Trejo 12/11/20 7140 for Emery Dixon MD ED HPI GENERAL MEDICAL PROBLEM - General Chief Complaint: Cardiovascular Problem Stated Complaint: AFIB Time Seen by Provider: 12/11/20 15:07 Source of Information: Reports: Patient, RN, RN Notes Reviewed History Limitations: Reports: No Limitations - History of Present Illness INITIAL COMMENTS - FREE TEXT/NARRATIVE: Patient presents to ED by POV with a history of paroxysmal atrial fibrillation. He went through most of the month of October without noticing any irregularity. In the past 2 weeks he has had several brief episodes during which time he would lay down and monitor his heart rate. He noticed that it would be irregular up to the 120s, but would last less than an hour or so and then he felt he would go back to normal sinus rhythm. Today he tried to lay down, relax and see if he could back to sinus rhythm, but after persisting and/or recurring for 5 hours his heart rate went to 140 so he came to the ER. Denies chest pain. Admits to mild shortness of breath when his rate gets into the 140s. He has had no recent medication changes. He has been avoiding caffeine and has had no changes in his level of physical activity. Onset: Gradual Duration: Intermittent, Recurring Location: Reports: Chest Severity: Moderate Improves with: Reports: None Worsens with: Reports: None Associated Symptoms: Reports: No Other Symptoms - Related Data Allergies Allergy/AdvReac Type Severity Reaction Status Date / Time lisinopril AdvReac Cough Verified 10/07/20 16:40 Home Meds: Home Meds Cholecalciferol (Vitamin D3) [Vitamin D3] 1,000 units PO DAILY 06/10/18 [History] Folic Acid 400 mcg PO DAILY 06/10/18 [History] Losartan [Cozaar] 100 mg PO DAILY 06/10/18 [History] Simvastatin 10 mg PO BEDTIME 06/10/18 [History] Triamterene/Hydrochlorothiazid [Triamterene-HCTZ 37.5-25 MG] 37.5 mg PO DAILY 06/10/18 [History] Vit A/C/E AC/Znox/Cupric Oxide [Eye Vitamin-Minerals Tablet] 1 tab PO BID 06/10/18 [History] amLODIPine Besylate [Amlodipine Besylate] 5 mg PO DAILY 06/10/18 [History] glipiZIDE [Glucotrol] 15 mg PO BID 06/10/18 [History] Rivaroxaban [Xarelto] 20 mg PO DAILY 09/07/19 [History] metFORMIN HCl [Metformin HCl] 1,000 mg PO BID 09/07/19 [History] Metoprolol Succinate [Toprol XL 100mg] 150 mg PO DAILY 09/08/19 [History] Aflibercept [Eylea] 2 mg INJECT .Q8WEEK 11/16/19 [History] Cod Liver Oil 1 cap PO DAILY 11/16/19 [History] Past Medical History - Past Health History Medical/Surgical History: Denies Medical/Surgical History HEENT History: Reports: Cataract, Impaired Vision, Macular Degeneration Cardiovascular History: Reports: Afib, Arrhythmia, High Cholesterol, Hypertension Respiratory History: Reports: Sleep Apnea Gastrointestinal History: Reports: Colon Polyp, Hemorrhoids Genitourinary History: Reports: Other (See Below) Other Genitourinary History: HYPOGONADISM Musculoskeletal History: Reports: Arthritis, Other (See Below) Other Musculoskeletal History: SHOT IN LEFT HIP IN SERVICE. Neurological History: Reports: None Psychiatric History: Reports: None Endocrine/Metabolic History: Reports: Diabetes, Type II, Obesity/BMI 30+ Hematologic History: Reports: Anticoagulation Therapy Immunologic History: Reports: None Oncologic (Cancer) History: Reports: None Dermatologic History: Reports: None - Infectious Disease History Infectious Disease History: Reports: Chicken Pox, Shingles - Past Surgical History Head Surgeries/Procedures: Reports: None HEENT Surgical History: Reports: Cataract Surgery, Oral Surgery Other HEENT Surgeries/Procedures: TOOTH IMPLANT. CATARACT SURGERY LEFT EYE Cardiovascular Surgical History: Reports: None Respiratory Surgical History: Reports: None GI Surgical History: Reports: Appendectomy, Colonoscopy, Other (See Below) Other GI Surgeries/Procedures: HEMMORHOID PROCEDURE Male Surgical History: Reports: None Endocrine Surgical History: Reports: None Neurological Surgical History: Reports: None Musculoskeletal Surgical History: Reports: None Oncologic Surgical History: Reports: None Dermatological Surgical History: Reports: None Social & Family History - Family History Family Medical History: No Pertinent Family History - Caffeine Use Caffeine Use: Reports: None - Living Situation & Occupation Living situation: Reports: Occupation: Retired ED ROS GENERAL - Review of Systems Review Of Systems: Comprehensive ROS is negative, except as noted in HPI. ED EXAM, GENERAL - Physical Exam Exam: See Below Exam Limited By: No Limitations General Appearance: Alert, WD/WN, No Apparent Distress Eye Exam: Bilateral Eye: Normal Inspection Nose: Normal Inspection, Normal Mucosa, No Blood Throat/Mouth: Normal Lips, Normal Teeth, Normal Gums, Normal Oropharynx, Normal Voice, No Airway Compromise, Other (Dry oral mucosa) Head: Atraumatic, Normocephalic Neck: Normal Inspection, Supple, Non-Tender, Full Range of Motion Respiratory/Chest: No Respiratory Distress, Lungs Clear, Normal Breath Sounds, No Accessory Muscle Use, Chest Non-Tender Cardiovascular: Tachycardia, Irregularly Irregular GI/Abdominal: Normal Bowel Sounds, Soft, Non-Tender, No Organomegaly, No Distention, No Abnormal Bruit, No Mass Back Exam: Normal Inspection Extremities: Normal Inspection, Normal Range of Motion, Non-Tender, Normal Capillary Refill, No Pedal Edema Neurological: Alert, Oriented, CN II-XII Intact, Normal Cognition, Normal Gait, No Motor/Sensory Deficits Psychiatric: Normal Affect, Normal Mood Skin Exam: Warm, Dry, Intact, Normal Color, No Rash #1 Interpretation EKG Date: 12/11/20 Time: 15:09 Rhythm: A-Fib Rate (Beats/Min): 123 [place]: Other (LAFB) P-Wave: Present QRS: Normal ST-T: Depressed (borderline in lateral leads) QT: Normal Course - Vital Signs Last Recorded V/S: Last Vital Signs Temp 97 F 12/11/20 15:08 Pulse 127 H 12/11/20 16:12 Resp 18 12/11/20 15:08 BP 154/64 H 12/11/20 16:12 Pulse Ox 96 12/11/20 15:08 - Orders/Labs/Meds Orders: Active Orders 24 hr Category Date Time Status EKG 12 Lead [EKG Documentation Completion] [RC] STAT Care 12/11/20 15:17 Active Peripheral IV Care [RC] . DIRECTED Care 12/11/20 15:18 Active Sodium Chloride 0.9% [Normal Saline] 500 ml Med 12/11/20 15:30 Active IV .BOLUS Sodium Chloride 0.9% [Saline Flush] Med 12/11/20 15:18 Active 10 ml FLUSH ASDIRECTED PRN Peripheral IV Insertion Adult [OM.PC] Routine Oth 12/11/20 15:17 Ordered Medication Orders Sodium Chloride (Normal Saline) 500 mls @ 999 mls/hr IV .BOLUS MACARIO Last Admin: 12/11/20 15:38 Dose: 999 mls/hr Documented by: DAMIAN Sodium Chloride (Sodium Chloride 0.9% 10 Ml Syringe) 10 ml FLUSH ASDIRECTED PRN PRN Reason: Keep Vein Open Last Admin: 12/11/20 15:39 Dose: 10 ml Documented by: DAMIAN Labs: Laboratory Tests 12/11/20 12/11/20 12/11/20 Range/Units 15:29 15:29 15:29 WBC 7.1 (5.0-10.0) 10^3/uL RBC 4.91 (4.6-6.2) 10^6/uL Hgb 14.1 (14.0-18.0) g/dL Hct 41.3 (40.0-54.0) % MCV 84.1 (80-100) fL MCH 28.7 (27.0-34.0) pg MCHC 34.1 (33.0-35.0) g/dL Plt Count 153 (150-450) 10^3/uL Neut % (Auto) 66.5 (42.2-75.2) % Lymph % (Auto) 23.8 (20.5-50.1) % [place] % (Auto) 7.6 (2-8) % Eos % (Auto) 1.7 (1.0-3.0) % Baso % (Auto) 0.4 (0.0-1.0) % PT 10.9 (9.0-12.0) SEC INR 1.1 (0.9-1.2) APTT 23.6 (22.0-34.0) SEC Sodium 142 (136-145) mmol/L Potassium 3.3 L (3.5-5.1) mmol/L Chloride 103 (98-107) mmol/L Carbon Dioxide 25 (21-32) mmol/L Anion Gap 17.3 H (7-13) mEq/L BUN 27 H (7-18) mg/dL Creatinine 1.11 (0.70-1.30) mg/dL Est Cr Clr Drug Dosing 63.11 mL/min Estimated GFR (MDRD) > 60 BUN/Creatinine Ratio 24.3 (No establ ref range) Glucose 230 H (70-99) mg/dL Calcium 8.3 L (8.5-10.1) mg/dL Magnesium 1.6 L (1.8-2.4) mg/dL Total Bilirubin 0.4 (0.2-1.0) mg/dL AST 13 L (15-37) U/L ALT 35 (16-63) U/L Alkaline Phosphatase 139 H (46-116) U/L Troponin I < 0.017 (0.000-0.056) ng/mL B-Natriuretic Peptide 44 (0-100) pg/ml Total Protein 6.4 (6.4-8.2) g/dL Albumin 3.6 (3.4-5.0) g/dL Globulin 2.8 Albumin/Globulin Ratio 1.3 Meds: Medications Generic Name Dose Route Start Last Admin Trade Name Freq PRN Reason Stop Dose Admin Sodium Chloride 500 mls @ 999 mls/hr 12/11/20 15:30 12/11/20 15:38 Normal Saline IV 999 mls/hr .BOLUS MACARIO Administration Sodium Chloride 10 ml 12/11/20 15:18 12/11/20 15:39 Sodium Chloride 0.9% 10 Ml Syringe FLUSH 10 ml ASDIRECTED PRN Administration Keep Vein Open Discontinued Medications Generic Name Dose Route Start Last Admin Trade Name Freq PRN Reason Stop Dose Admin Magnesium Sulfate 2 gm in 50 mls @ 25 mls/hr 12/11/20 16:04 12/11/20 16:12 Magnesium Sulfate In Water 2 Gm/50 Ml IV 12/11/20 18:03 25 mls/hr ONETIME ONE Administration Metoprolol Tartrate 5 mg 12/11/20 15:19 12/11/20 15:33 Metoprolol Tartrate 5 Mg/5 Ml Sdv IVPUSH 12/11/20 15:20 5 mg ONETIME ONE Administration Metoprolol Tartrate 5 mg 12/11/20 16:05 12/11/20 16:12 Metoprolol Tartrate 5 Mg/5 Ml Sdv IVPUSH 12/11/20 16:06 5 mg ONETIME ONE Administration Metoprolol Tartrate 25 mg 12/11/20 17:38 Metoprolol Tartrate 25 Mg Tab PO 12/11/20 17:39 ONETIME ONE Potassium Chloride 80 meq 12/11/20 16:03 12/11/20 16:11 Potassium Chloride 10 Meq Tab.Er PO 12/11/20 16:04 80 meq ONETIME ONE Administration - Re-Assessments/Exams Free Text/Narrative Re-Assessment/Exam: 12/11/20 18:04 Pt converted to SR after tx with Metoprolol in ER. Low Potassium and Magnesium replaced while in ER. Pt felt improved and wished to go home. Departure - Departure Time of Disposition: 18:06 Disposition: Home, Self-Care 01 Condition: Good Clinical Impression: Paroxysmal atrial fibrillation with rapid ventricular response, Hypokalemia, Hypomagnesemia, Mild dehydration Instructions: Atrial Fibrillation, Hypokalemia, Hypomagnesemia, Dehydration, Adult, [id number] Forms: ED Department Discharge Additional Instructions: Follow up in clinic this weak for recheck of potassium and magnesium levels, and for diabetic management. Notify your assurance manager of this episode of atrial fibrillation with rapid ventricular response. Return to ER if worse at any time. Sepsis Event Note (ED) - Focused Exam Vital Signs: Vital Signs Temp Pulse Pulse Resp BP BP Pulse Ox 12/11/20 16:12 127 H 154/64 H 12/11/20 15:33 128 H 119/77 12/11/20 15:08 97 F 111 H 18 141/90 H 96 - My Orders Last 24 Hours: My Active Orders 12/11/20 15:17 EKG 12 Lead [EKG Documentation Completion] [RC] STAT Peripheral IV Insertion Adult [OM.PC] Routine 12/11/20 15:18 Peripheral IV Care [RC] . DIRECTED Sodium Chloride 0.9% [Saline Flush] 10 ml FLUSH ASDIRECTED PRN 12/11/20 15:30 Sodium Chloride 0.9% [Normal Saline] 500 ml IV .BOLUS - Assessment/Plan Last 24 Hours: My Active Orders 12/11/20 15:17 EKG 12 Lead [EKG Documentation Completion] [RC] STAT Peripheral IV Insertion Adult [OM.PC] Routine 12/11/20 15:18 Peripheral IV Care [RC] . DIRECTED Sodium Chloride 0.9% [Saline Flush] 10 ml FLUSH ASDIRECTED PRN 12/11/20 15:30 Sodium Chloride 0.9% [Normal Saline] 500 ml IV .BOLUS I have read and agree with the documentation that has been completed regarding this visit. By signing this record, I attest that the documentation was completed in my physical presence and is an accurate record of the encounter.
[2020-12-11 18:12] VITALS: BP 144/60; PULSE 60
== END 2020-12-11 18:27 | disposition home or self-care (01) ==
LOC: DL.ED 14:50
DX: I48.0 Paroxysmal atrial fibrillation (principal); E87.6 Hypokalemia; E83.42 Hypomagnesemia; E86.0 Dehydration; E78.00 Pure hypercholesterolemia, unspecified; I10 Essential (primary) hypertension; E11.9 Type 2 diabetes mellitus without complications; Z79.84 Long term (current) use of oral hypoglycemic drugs; E66.9 Obesity, unspecified; Z79.01 Long term (current) use of anticoagulants; Z79.899 Other long term (current) drug therapy; Z68.32 Body mass index [BMI] 32.0-32.9, adult; Z88.8 Allergy status to other drugs, medicaments and biological substances
CPT/HCPCS: 36415; 80053; 83735; 83880; 84484; 85025; 85610; 85730; 93005; 93010; 96365; 96366; 96375; 96376; 99284; 99285; A9270; J3475; J3490; J7040

== ENCOUNTER 2021-10-03 18:12 | Emergency (ER) | payer MEDICARE, OTHER ==
[2021-10-03] MEDS ORDERED: Sodium Chloride 0.9% 10 ML Syringe FLUSH PRN (18:26)
[2021-10-03 19:04] LABS: AMPHETAMINES,URINE NEGATIVE (NEGATIVE); BARBITURATES,URINE NEGATIVE (NEGATIVE); BENZODIAZEPINE,URINE NEGATIVE (NEGATIVE); MDMA (ECSTASY), URINE NEGATIVE (NEGATIVE); METHADONE,URINE NEGATIVE (NEGATIVE); METHAMPHETAMINES,URINE NEGATIVE (NEGATIVE); OPIATES,URINE NEGATIVE (NEGATIVE); OXYCODONE,URINE NEGATIVE (NEGATIVE); PHENCYCLIDINE,URINE NEGATIVE (NEGATIVE); TCA,URINE NEGATIVE (NEGATIVE)
[2021-10-03 19:11] LABS: PTT,PARTIAL THROMBOPLSTIN TIME 24.2 SEC (22.0-34.0)
[2021-10-03 19:26] LABS: ANION GAP 10.6 mEq/L (7-13); CHLORIDE,CL 103 mmol/L (98-107); SODIUM,NA 137 mmol/L (136-145)
== END 2021-10-03 20:06 ==
LOC: DL.ED 18:12
DX: S06.5X9A Traumatic subdural hemorrhage with loss of consciousness of unspecified duration, initial encounter (principal); S06.6X9A Traumatic subarachnoid hemorrhage with loss of consciousness of unspecified duration, initial encounter; I48.91 Unspecified atrial fibrillation; E78.00 Pure hypercholesterolemia, unspecified; I10 Essential (primary) hypertension; E11.9 Type 2 diabetes mellitus without complications; E66.9 Obesity, unspecified; Z68.30 Body mass index [BMI] 30.0-30.9, adult; Z79.899 Other long term (current) drug therapy; Z79.02 Long term (current) use of antithrombotics/antiplatelets; Z88.8 Allergy status to other drugs, medicaments and biological substances; Z79.01 Long term (current) use of anticoagulants; W00.9XXA Unspecified fall due to ice and snow, initial encounter; Y92.009 Unspecified place in unspecified non-institutional (private) residence as the place of occurrence of the external cause
CPT/HCPCS: 36415; 70450; 71101-RT; 72125; 80053; 80305-QW; 80307; 81001; 82150; 83690; 84484; 85025; 85610; 85730; 99285; 99285-25

== ENCOUNTER 2021-10-10 12:37 | Emergency (ER) | payer OTHER ==
[2021-10-10 13:08] VITALS: PULSE 72
[2021-10-10 13:27] VITALS: BP 122/73
[2021-10-10 14:13] LABS: ANION GAP 16.5 mEq/L (7-13)
== END 2021-10-10 14:43 | disposition home or self-care (01) ==
LOC: DL.ED 12:37
DX: S06.360A Traumatic hemorrhage of cerebrum, unspecified, without loss of consciousness, initial encounter (principal); F07.81 Postconcussional syndrome; G44.319 Acute post-traumatic headache, not intractable; E11.9 Type 2 diabetes mellitus without complications; E78.00 Pure hypercholesterolemia, unspecified; I10 Essential (primary) hypertension; E66.9 Obesity, unspecified; Z68.30 Body mass index [BMI] 30.0-30.9, adult; Z79.899 Other long term (current) drug therapy; Z79.02 Long term (current) use of antithrombotics/antiplatelets; Z87.891 Personal history of nicotine dependence; W00.0XXA Fall on same level due to ice and snow, initial encounter
CPT/HCPCS: 36415; 70450; 80053; 85025; 85610; 99284-25

== ENCOUNTER 2021-10-26 17:01 | Emergency (ER) | payer OTHER ==
[2021-10-26 18:06] VITALS: BP 105/55; PULSE 70
[2021-10-26] MEDS ORDERED: Ondansetron 4 MG Tab.DIS PO ONE (18:36)
[2021-10-26 18:56] LABS: CORONAVIRUS COVID-19 NAA NEGATIVE (NEGATIVE)
[2021-10-26] MEDS ORDERED: Sodium Chloride 0.9% 1,000 ML IV ONE (20:20)
[2021-10-26 21:00] LABS: CHLORIDE,CL 99 mmol/L (98-107); SODIUM,NA 138 mmol/L (136-145)
[2021-10-26] MEDS ORDERED: Iopamidol 612 MG/ML 100 ML Bottle IVPUSH ONE (21:47)
== END 2021-10-27 01:00 ==
LOC: DL.ED 17:01
DX: K52.9 Noninfective gastroenteritis and colitis, unspecified (principal); E11.9 Type 2 diabetes mellitus without complications; R93.0 Abnormal findings on diagnostic imaging of skull and head, not elsewhere classified; I48.91 Unspecified atrial fibrillation; E78.00 Pure hypercholesterolemia, unspecified; I10 Essential (primary) hypertension; E66.9 Obesity, unspecified; Z68.30 Body mass index [BMI] 30.0-30.9, adult; Z88.8 Allergy status to other drugs, medicaments and biological substances; Z79.899 Other long term (current) drug therapy; Z79.02 Long term (current) use of antithrombotics/antiplatelets; Z20.822 Contact with and (suspected) exposure to COVID-19
CPT/HCPCS: 0240U; 36415; 70450; 71045; 74177; 80053; 82150; 82947; 83605; 83690; 83880; 84484; 85025; 85610; 86140; 87040; 87046; 93005; 99285; A9270; J7030; Q9967